=== PATIENT | female | born 1970 | race Caucasian/White ===

== ENCOUNTER 2018-12-24 12:07 | Emergency (ER) | payer OTHER ==
[~2018-12-24] VITALS: Ht 162.6 cm; Wt 67.1 kg
[2018-12-24] MEDS ORDERED: IBUP600T16 PO (12:56)
[2018-12-24] MEDS ORDERED: TRAM-48 PO (12:56)
--- NOTE | 2018-12-24 12:56 | PHYS DOC ---
Past History Past Medical History: Hypothyroid Past Surgical History: Other Alcohol Use: Occasionally Drug Use: None Adult General Chief Complaint Chief Complaint: LEG INJURY PAIN [facility] HPI Patient is a 48 year old female who presents with complaining of injury to right lower extremity. Patient [place] and had a fall and injured her right lower extremity without head injury, loss of consciousness other injuries. Patient states she developed a cough size edema in the area of injury and they did on developed a large ecchymosis. Patient complaining of increasing pain with walking and radiation of the pain to her ankle. She also complaining of paresthesia in her right leg that started today. Patient denies weakness, fever and chills, nausea and vomiting. Patient states she applied ice and took Tylenol and rated her pain 5 or 6. She does not want to have pain medication in ER. Review of Systems Review of Systems Constitutional: Denies fever or chills [] Eyes: Denies change in visual acuity, redness, or eye pain [] HENT: Denies nasal congestion or sore throat [] Respiratory: Denies cough or shortness of breath [] Cardiovascular: No additional information not addressed in HPI [] GI: Denies abdominal pain, nausea, vomiting, bloody stools or diarrhea [] : Denies dysuria or hematuria [] Musculoskeletal: Denies back pain, reports extremity pain [] Integument: Denies rash or skin lesions [] Neurologic: Denies headache, focal weakness or sensory changes [] Endocrine: Denies polyuria or polydipsia [] All other systems were reviewed and found to be within normal limits, except as documented in this note. Physical Exam Physical Exam Constitutional: Well developed, well nourished, mild acute distress, non-toxic appearance. [] HENT: Normocephalic, atraumatic Eyes: PERRLA, EOMI, conjunctiva normal, no discharge. [] Neck: Normal range of motion, no tenderness, supple, no stridor. [] Cardiovascular:Heart rate regular rhythm, no murmur [] Lungs & Thorax: Bilateral breath sounds clear to auscultation [] Skin: Warm, dry, no erythema, no rash. [] Back: No tenderness, no CVA tenderness. [] Extremities: Right lower extremity with a large ecchymosis in anterior of mid adan with mildd edema without wound, normal range of motion ,no focal neuro deficit, No tenderness, no cyanosis, no clubbing, ROM intact, no edema. [] Neurologic: Alert and oriented X 3, normal motor function, normal sensory function, no focal deficits noted. [] Psychologic: Affect normal, judgement normal, mood normal. [] Current Patient Data Vital Signs Vital Signs Date Time Temp Pulse Resp B/P (MAP) Pulse Ox O2 Delivery O2 Flow Rate FiO2 12/24/18 12:15 84 22 97 Room Air EKG EKG [] Radiology/Procedures Radiology/Procedures [address] [address] IMAGING REPORT Signed PATIENT: CLARKE DERAS ACCOUNT: [id number] : 1970 LOCATION: ER AGE: 48 SEX: F EXAM STATUS: REG ER ORD. PHYSICIAN: CAROLYN COLE MD REASON: injury PROCEDURE: TIBIA FIBULA RIGHT Examination: 2 views of the right tibia and fibula HISTORY: History of hematoma, injury, puncture wound anterior to the tibia. COMPARISON: None available FINDINGS: The alignment of the tibia and fibula grossly appears unremarkable. Mild soft tissue swelling anterior to the tibia likely soft tissue injury. IMPRESSION: 1. No acute osseous findings. Electronically signed by: Matheus Melara MD (12/24/2018 12:52 PM) [facility] DICTATED AND SIGNED BY: MATHEUS MELARA MD DATE: 12/24/18 1249 CC: PRETTY CLAY MD; CAROLYN COLE MD ~ Course & Med Decision Making Course & Med Decision Making Pertinent Imaging studies reviewed. (See chart for details) Evaluation of patient in ER showed 48-year-old female patient with injury to right lower extremity with large ecchymosis. Patient had unremarkable x-ray and found to have pain medication in ER. Plan to apply Abrahan wrap and discharge patient home with diagnosis of lower extremity contusion. Dragon Disclaimer Dragon Disclaimer This electronic medical record was generated, in whole or in part, using a voice recognition dictation system. Departure Departure: Impression: Primary Impression: Contusion of right lower extremity Disposition: HOME, SELF-CARE (at 1254) Condition: STABLE Referrals: NON,STAFF (PCP) Patient Instructions: Contusion Additional Instructions: Drink plenty of liquids Follow-up with your primary care physician in 3-5 days Return to ER if not getting better Apply ice on the affected area and your leg Scripts Tramadol Hcl (ULTRAM) 50 Mg Tablet 50 MG PO PRN Q6HRS PRN for PAIN, #20 TAB Prov: CAROLYN COLE MD 12/24/18 Ibuprofen (IBUPROFEN) 600 Mg Tablet 600 MG PO TID for pain, #20 TAB Prov: CAROLYN COLE MD 12/24/18 CAROLYN COLE MD Dec 24, 2018 12:56
[2018-12-24 13:41] VITALS: BP 138/83
== END 2018-12-24 13:20 | disposition home or self-care (01) ==
LOC: ER 12:07
DX: S80.11XA Contusion of right lower leg, initial encounter (principal); E03.9 Hypothyroidism, unspecified; W18.39XA Other fall on same level, initial encounter; Y93.01 Activity, walking, marching and hiking; Y92.89 Other specified places as the place of occurrence of the external cause; Y99.8 Other external cause status
CPT/HCPCS: 73590; 99283

== ENCOUNTER 2019-01-02 10:00 | Emergency (ER) | payer OTHER ==
[~2019-01-02] VITALS: Ht 162.6 cm; Wt 67.1 kg
[~2019-01-02 10:00] MED LIST: IBUP600T16 PO; TRAM-48 PO
[2019-01-02 10:08] VITALS: BP 128/82
[2019-01-02] MEDS ORDERED: HYDROcodone/APAP 5/325MG 1 TAB TABLET PO ONE (10:30)
--- NOTE | 2019-01-02 10:42 | PHYS DOC ---
Past History Past Medical History: Hypothyroid, Other Past Surgical History: Other Alcohol Use: None Drug Use: None Adult General Chief Complaint Chief Complaint: LOWEREXTREMITY INJURY [facility] HPI Patient is a 48 year old female who presents with complaining of a fall on December 22 and injury to right lower extremity and increasing the pain. Patient states she had an accidental fall and had injury to right lower extremity with large ecchymosis that getting larger and more painful. Patient was seen in this emergency room on December 24 and had unremarkable x-ray of right lower extremity. Patient states her pain is not getting better and was not able to sit by her primary care physician at [facility] and was told to come to emergency room. Review of Systems Review of Systems Constitutional: Denies fever or chills [] Eyes: Denies change in visual acuity, redness, or eye pain [] HENT: Denies nasal congestion or sore throat [] Respiratory: Denies cough or shortness of breath [] Cardiovascular: No additional information not addressed in HPI [] GI: Denies abdominal pain, nausea, vomiting, bloody stools or diarrhea [] : Denies dysuria or hematuria [] Musculoskeletal: Denies back pain, reports joint pain [] Integument: Denies rash or skin lesions [] Neurologic: Denies headache, focal weakness or sensory changes [] Endocrine: Denies polyuria or polydipsia [] All other systems were reviewed and found to be within normal limits, except as documented in this note. Allergies Allergies Allergies Coded Allergies Type Severity Reaction Last Updated Verified No Known Allergies Allergy Unknown 01/02/19 Yes Physical Exam Physical Exam Constitutional: Well developed, well nourished, mild distress, non-toxic appearance. [] HENT: Normocephalic, atraumatic Eyes: PERRLA, EOMI, conjunctiva normal, no discharge. [] Neck: Normal range of motion, no tenderness, supple, no stridor. [] Cardiovascular:Heart rate regular rhythm, no murmur [] Lungs & Thorax: Bilateral breath sounds clear to auscultation [] Skin: Warm, dry, no erythema, no rash. [] Back: No tenderness, no CVA tenderness. [] Extremities: Right right lower extremity with large and old ecchymosis in anterior and lateral side of leg with puncture wound in anterior side of leg without neurovascular deficit. Neurologic: Alert and oriented X 3, normal motor function, normal sensory function, no focal deficits noted. [] Psychologic: Affect normal, judgement normal, mood normal. [] Current Patient Data Vital Signs Vital Signs Date Time Temp Pulse Resp B/P (MAP) Pulse Ox O2 Delivery O2 Flow Rate FiO2 01/02/19 10:08 98.2 90 20 98 Room Air EKG EKG [] Radiology/Procedures Radiology/Procedures [address] [address] IMAGING REPORT Signed PATIENT: RADHA JIMENEZ ACCOUNT: [id number] : 12/20/1980 LOCATION: ER AGE: 38 SEX: F EXAM STATUS: REG ER ORD. PHYSICIAN: CAROLYN COLE MD REASON: fall PROCEDURE: KNEE RIGHT 4V KNEE RIGHT 4V History: FALL ON ICE TODAY, RIGHT KNEE PAIN Comparison: None. Findings: 4 views of the right knee are submitted. No acute fracture or dislocation is identified by radiographs. Impression: 1. No acute osseous abnormality is identified by radiographs. Electronically signed by: Jeffrey Gasca MD (01/02/2019 10:51 AM) [id number] DICTATED AND SIGNED BY: JEFFREY GASCA MD DATE: 01/02/19 1049 CC: CAROLYN COLE MD; PCP,NO ~ [address] [address] IMAGING REPORT Signed PATIENT: RADHA JIMENEZ ACCOUNT: [id number] : 12/20/1980 LOCATION: ER AGE: 38 SEX: F EXAM STATUS: REG ER ORD. PHYSICIAN: CAROLYN COLE MD REASON: fall PROCEDURE: SHOULDER 2+V RIGHT SHOULDER 2+V RIGHT History: FALL ON ICE TODAY, RIGHT SHOULDER PAIN Comparison: None. Findings: 3 views of the right shoulder are submitted. There is old healed fracture of the right clavicle. No acute fracture or dislocation is identified by radiographs. Impression: 1. There is old healed right clavicle fracture, no acute fracture identified by radiographs. Electronically signed by: Jeffrey Gasca MD (01/02/2019 10:52 AM) [id number] DICTATED AND SIGNED BY: JEFFREY GASCA MD DATE: 01/02/19 1051 CC: CAROLYN COLE MD; PCP,NO ~ Course & Med Decision Making Course & Med Decision Making Pertinent Imaging studies reviewed. (See chart for details) Evaluation of patient in ER showed 48-year-old female patient with a fall on December 22 and injury to right lower extremity. Patient had venous Doppler study today and negative x-ray interpreted previous visit. Patient instructed to follow-up with [facility] physician for possible MRI and evaluation of pain. Dragon Disclaimer Dragon Disclaimer This electronic medical record was generated, in whole or in part, using a voice recognition dictation system. Departure Departure: Impression: Primary Impression: Contusion of right lower extremity Disposition: 01 HOME, SELF-CARE (@1225) Condition: STABLE Referrals: PRETTY CLAY MD (PCP) Patient Instructions: Contusion Additional Instructions: Follow-up with [facility] orthopedic physician Dr. Rodriguez called [phone] to make an appointment in 2 or 3 days for possible MRI of lower extremity and more evaluation Drink plenty of liquids Follow-up with your primary care physician in 3-5 days Return to ER if not getting better CAROLYN COLE MD Jan 02, 2019 10:42
--- NOTE | 2019-01-02 11:38 | RAD ---
Right lower extremity venous Doppler ultrasound History: INJURY FELL OVER A BRANCH 216-19 RT ANTERIOR CALF JUST MEDIAL AND LATERAL OF ML HAS BRUISING ON IT AND IS PAINFUL Comparison: None. Procedure: Color flow Doppler, Doppler spectral analysis, and 2D images are obtained with and without compression in the area of the common femoral vein, superficial femoral vein - femoral vein junction, main femoral vein (superficial femoral vein) and popliteal vein. Veins of the proximal calf are also imaged. Findings: There is normal color flow, augmentation, and compressibility of all visualized vein segments. No evidence of deep venous thrombus is present. No subcutaneous or intramuscular fluid collection is identified in the calf. IMPRESSION: No evidence of right lower extremity deep venous thrombosis. Electronically signed by: Sanjeev Ferris MD (01/02/2019 11:35 AM) [id number]
== END 2019-01-02 12:31 | disposition home or self-care (01) ==
LOC: ER 10:00
DX: S80.01XD Contusion of right knee, subsequent encounter (principal); E03.9 Hypothyroidism, unspecified; W18.39XD Other fall on same level, subsequent encounter
CPT/HCPCS: 93971; 99284

== ENCOUNTER 2020-06-29 19:00 | Emergency (ER) | payer OTHER ==
[~2020-06-29] VITALS: Ht 162.6 cm; Wt 63.6 kg
[2020-06-29 19:10] VITALS: BP 144/72
--- NOTE | 2020-06-29 19:27 | PHYS DOC ---
Past History Past Medical History: Hypothyroid, Other Past Surgical History: Other Alcohol Use: None Drug Use: None Adult General Chief Complaint Chief Complaint: FOOT INJURY PAIN HPI HPI Patient is a 49-year-old female who presents with left foot pain. Reports stubbing left fifth and fourth toes on corner of bathtub. Unable to fully bear weight, focal pain to base of left fifth metatarsal, history of orthopedic surgery and plates in foot. Patient heard a crunch concerning her for potential dislodgment of prior orthopedic surgery prompting her to seek care at our ER Review of Systems Review of Systems Fourteen body systems of review of systems have been reviewed. See HPI for pertinent positives and negative responses, other alves all other systems are negative, non-pertinent or non-contributory Current Medications Current Medications Current Medications Medications (Trade) Dose Ordered Sig/Gloria Start Time Stop Time Status Last Admin Dose Admin Ibuprofen (Motrin) 600 mg 1X ONCE 06/29/20 19:30 06/29/20 19:31 Allergies Allergies Allergies Coded Allergies Type Severity Reaction Last Updated Verified No Known Allergies Allergy Unknown 06/29/20 Yes Physical Exam Physical Exam Constitutional: Well developed, well nourished, no acute distress, non-toxic appearance. HENT: Normocephalic, atraumatic, bilateral external ears normal, oropharynx moist, no oral exudates, nose normal. Eyes: PERRLA, EOMI, conjunctiva normal, no discharge. Neck: Normal range of motion, no tenderness, supple, no stridor. Cardiovascular: Heart rate regular, sinus rhythm, no murmurs rubs or gallops Lungs & Thorax: Bilateral breath sounds clear to auscultation Abdomen: Bowel sounds normal, soft, no tenderness, no masses, no pulsatile masses. Nonsurgical abdomen, no peritoneal signs Skin: Warm, dry, no erythema, no rash. Back: No tenderness, no CVA tenderness. Extremities: No cyanosis, no clubbing, ROM intact, no edema. Bilateral feet and ankles unless otherwise noted; Proximal Tibia nontender Medial malleolus nontender Lateral malleolus nontender Calcaneus nontender Tarsometatarsal region nontender Base of 5th on left tender to palpation Rest of foot and ankle without marked tenderness Varus and Valgus Stress of ankle joint without significant laxity Full Range of Motion with full strength Skin on plantar section of midfoot without ecchymosis Capillary refill <2seconds and distal Sensation to light touch in tact per routine Compartments surrounding are soft Neurologic: Alert and oriented X 3, grossly normal motor & sensory function, no focal deficits noted. Psychologic: Affect normal, judgement normal, mood normal. Current Patient Data Vital Signs Vital Signs Date Time Temp Pulse Resp B/P (MAP) Pulse Ox O2 Delivery O2 Flow Rate FiO2 06/29/20 19:10 98.1 98 18 144/72 (96) 97 Room Air EKG EKG [] Radiology/Procedures Radiology/Procedures PROCEDURE: FOOT LEFT 3V FOOT LEFT 3V History: Reason: Left foot injury today, pain. Hx: Surgery 2010 with plate / Spl. Instructions: / History: Technique: 3 views left foot. Comparison: None. Findings: Normal alignment. No fracture. Internal fixation fifth metatarsal healed fracture. Impression: 1. No acute osseous abnormality. Electronically signed by: David Murphy DO (06/29/2020 9:32 PM) [facility] Course & Med Decision Making Course & Med Decision Making Nonambulatory patient seen on arrival ABCs unremarkable Comprehensive history and physical exam obtained, Benton foot rules positive, radiograph obtained, discussed findings of no acute bony abnormalities Patient arrived on crutches, she was educated extensively on continued supportive care and need for outpatient PCP follow-up with consideration for orthopedic follow-up Discussed most likely diagnosis of left fifth metatarsal contusion Discussed this may be an acute presentation of more serious pathology, stressed importance of close outpatient follow-up Strict return precautions discussed at length with good understanding, all questions and concerns addressed prior to discharge home in stable condition Dragon Disclaimer Dragon Disclaimer This electronic medical record was generated, in whole or in part, using a voice recognition dictation system. Departure Departure: Impression: Primary Impression: Contusion of fifth toe of left foot Disposition: HOME/RESIDENCE PRIOR TO ADM Condition: STABLE Referrals: PRETTY CLAY MD (PCP) Patient Instructions: RICE - Routine Care for Injuries Additional Instructions: As discussed prior to ER departure, please follow-up with your primary care physician in upcoming 1 to 10 days for follow-up As discussed, there were no emergent/surgical findings during your ER visit Continued supportive care with outpatient follow-up advised with consideration for orthopedic evaluation as determined by your PCP You have any questions or concerns regarding your care or concerning signs or symptoms of worsening foot pain and/or infection, please contact your primary care physician or re-present to our ER for thorough medical evaluation It was a pleasure to take care of you and I hope you a speedy recovery! Justification of Admission: Justification of Admission: Justification of Admission Dx: N/A HUMBERTO CARRASCO DO Jun 29, 2020 19:27
[2020-06-29] MEDS ORDERED: IBUPROFEN 600 MG TABLET. PO ONE (19:30)
--- NOTE | 2020-06-29 21:35 | RAD ---
FOOT LEFT 3V History: Reason: Left foot injury today, pain. Hx: Surgery 2010 with plate / Spl. Instructions: / History: Technique: 3 views left foot. Comparison: None. Findings: Normal alignment. No fracture. Internal fixation fifth metatarsal healed fracture. Impression: 1. No acute osseous abnormality. Electronically signed by: David Murphy DO (06/29/2020 9:32 PM) [facility]
[2020-06-29] MEDS ORDERED: START PACK - traMADol 1 STARTPACK TABLET PO ONE (22:00)
== END 2020-06-29 21:58 | disposition home or self-care (01) ==
LOC: ER 19:00
DX: S90.32XA Contusion of left foot, initial encounter (principal); E03.9 Hypothyroidism, unspecified; W22.8XXA Striking against or struck by other objects, initial encounter; Y93.89 Activity, other specified; Y92.89 Other specified places as the place of occurrence of the external cause; Y99.8 Other external cause status
CPT/HCPCS: 73630; 99284

== ENCOUNTER → 2021-02-01 | Outpatient (CLI) | payer OTHER ==
--- NOTE | 2021-02-02 04:56 | RAD ---
XR RT TOE 2+ VIEWS Clinical Indication: Reason: F/U RIGHT 5TH DIGIT FRACTURE / Spl. Instructions: / History: Comparison: None. Findings: AP and lateral views. There is cortical irregularity of the distal neck of the fifth proximal phalanx which could be due to subacute nondisplaced fracture. No definite callus formation is seen. No soft tissue swelling of the fifth toe is seen. The joint spaces are maintained. The mineralization is normal. There is inferior calcaneal bone spur. IMPRESSION: Cortical irregularity of the distal neck of the fifth proximal phalanx may be subacute nondisplaced f racture. Electronically signed by: Sanjeev Ferris MD (02/02/2021 4:54 AM) [facility]
== END ==
LOC: RAD 13:47
PROVIDERS: ATTEND Physician Assistant
DX: S92.514 Nondisplaced fracture of proximal phalanx of right lesser toe(s) (principal); X58.XXXA Exposure to other specified factors, initial encounter; Y93.89 Activity, other specified; Y92.89 Other specified places as the place of occurrence of the external cause; Y99.8 Other external cause status
CPT/HCPCS: 73660

== ENCOUNTER 2021-06-19 22:23 | Emergency (ER) | payer OTHER ==
--- NOTE | 2021-06-20 02:15 | PHYS DOC ---
Past History Past Medical History: Hypothyroid, Kidney Stones, Other Additional Past Medical Histor: restless legs Past Surgical History: Other Additional Past Surgical Histo: lt foot surgery-repair broken bones in foot Alcohol Use: Occasionally Drug Use: None General Adult EDM: Chief Complaint: URINARY FREQUENCY HPI: HPI: ".. I ve got a really bad urinary tract infection... " Or something going on Patient is a 50 year old female who presents with right flank pain. Pain radiates to groin. Pain is described as severe. Has been intermittent. Is associated with severe nausea during peak painful episodes. No previous history of kidney stones. No history of trauma. No history of travel. No history of specific ill contacts. Normally healthy. Follows with [facility]. Review of Systems: Review of Systems: Constitutional: Denies fever or chills Eyes: Denies change in visual acuity HENT: Denies nasal congestion or sore throat Respiratory: Denies cough or shortness of breath Cardiovascular: Denies chest pain or edema GI: Complains of right flank abdominal pain, nausea, vomiting,. Denies bloody stools or diarrhea : Denies dysuria Musculoskeletal: Pain to right flank back pain. Denies joint pain Integument: Denies rash Neurologic: Denies headache, focal weakness or sensory changes Endocrine: Denies polyuria or polydipsia Lymphatic: Denies swollen glands Psychiatric: Denies depression or anxiety Family History: Family History: Noncontributory Current Medications: Current Meds: See nursing for home meds Allergies: Allergies: Allergies Coded Allergies Type Severity Reaction Last Updated Verified No Known Allergies Allergy Unknown 06/29/20 Yes Physical Exam: PE: Constitutional: in acute distress, non-toxic appearance. [] HENT: Normocephalic, atraumatic, bilateral external ears normal, oropharynx moist, no oral exudates, nose normal. [] Eyes: PERRLA, EOMI, conjunctiva normal, no discharge. [] Neck: Normal range of motion, no tenderness, supple, no stridor. [] Cardiovascular:Heart rate regular rhythm, no murmur [] Lungs & Thorax: Bilateral breath sounds clear to auscultation [] Abdomen: Bowel sounds decreased, soft, right flank tenderness, no masses, no pulsatile masses. [] Skin: Warm, dry, no erythema, no rash. [] Back: No tenderness, right flank CVA tenderness. [] Extremities: No tenderness, no cyanosis, no clubbing, ROM intact, no edema. [] Neurologic: Alert and oriented X 3, normal motor function, normal sensory function, no focal deficits noted. [] Psychologic: Affect anxious, judgement normal, mood normal. [] EKG: EKG: [] Radiology/Procedures: Radiology/Procedures: [[address] [id number] IMAGING REPORT Signed PATIENT: CLARKE DERAS DACCOUNT: [id number] : 1970 LOCATION: ER AGE: 50 SEX: F EXAM STATUS: REG ER ORD. PHYSICIAN: PO JAFFE MD REASON: pain, Rt. flank radiate to groin PROCEDURE: CT ABDOMEN PELVIS WO CONTRAST CT abdomen and pelvis without contrast PQRS statement: CT scans at this facility use dose reduction including either automated exposure control, iterative reconstructions, and /or weight based radiation dosing via mA and kV modification when appropriate to reduce radiation dose to as low as reasonably achievable. HISTORY: Right flank pain. Right groin pain. CT abdomen findings: Left lower lobe 3 mm solid nodule image 7. Inferior right hepatic lobe image 60 demonstrates a 2.5 cm indeterminate hypodense lesion internal density of 45 units. Spleen, accessory spleen, gallbladder, pancreas and adrenal glands are unremarkable. Nephrolithiasis. There is mild right renal hydronephrosis and dilation of the ureter leading up to a 5 mm obstructing calculus at the ureterovesical junction. Calcified likely aorta and iliac arteries. Appendix is negative. There is moderate volume of stool within the large bowel. No abdominal fluid. Pelvis findings: Retroverted uterus. Lobulation of the anterior wall of the lower uterus could indicate the presence of a leiomyoma or other mass lesion. There is a right adnexal 4.2 cm tubular cystic focus likely hydrosalpinx. 5 mm right ureterovesical junction calculus at the distal ureter and bladder. Left ovary, rectum and bones are unremarkable. IMPRESSION: 1. Mild right renal hydronephrosis associated with a 5 mm obstructive ureterovesical junction calculus. 2. Nephrolithiasis. 3. Appendix is negative. 4. Lobulation of the anterior lower uterine wall may indicate a mass, most likely a leiomyoma. There is a tubular 4 x 2 cm cystic focus of the right adnexa, likely hydrosalpinx, an adnexal cystic lesion is a secondary consideration. Further assessment with outpatient pelvic sonography is advised. 5. 3 mm solid pulmonary nodule of the left lower lobe. Per Fleischner guidelines if the patient has risk factors for malignancy optional CT follow-up in 12 months would be advised, otherwise no follow-up is necessary. 6. Indeterminate 2.5 cm round hypodense liver lesion of the right hepatic lobe with internal density of 45 units. This is not typical of a cyst. This could be a hemangioma or a solid neoplasm. This could be further assessed with outpatient MR imaging. Electronically signed by: Swetha Baker MD (06/20/2021 3:58 AM) [facility] [place] DICTATED AND SIGNED BY: SWETHA BAKER MD DATE: 06/20/21 [id number] CC: PO JAFFE MD; PRETTY CLAY MD ~[facility] 0 ][place] [address] IMAGING REPORT Signed PATIENT: CLARKE DERAS DACCOUNT: [id number] : 1970 LOCATION: ER AGE: 50 SEX: F EXAM STATUS: REG ER ORD. PHYSICIAN: PO JAFFE MD REASON: pain PROCEDURE: ACUTE ABDOMEN SERIES PA chest and AP upright supine abdomen x-rays HISTORY: Pain. FINDINGS: Heart and mediastinum unremarkable. No pulmonary opacities or pleural effusions. No pneumoperitoneum evident. Mild gas and stool within the large bowel. No dilated small bowel loops. At the right pelvis there is a 4 mm calcification corresponding to a ureterovesical junction calculus on CT imaging performed the same day. IMPRESSION: 4 mm calcification at the pelvis consistent with the patient's known ureterovesical junction calculus. No acute process in the chest. No bowel obstruction. Electronically signed by: Swetha Baker MD (06/20/2021 4:27 AM) [facility] DI[facility]ATED AND SIGNED BY: SWETHA BAKER MD DATE: 06/20/21 [id number] CC: PO JAFFE MD; PRETTY CLAY MD ~[facility]0 0 Heart Score: C/O Chest Pain: N/A Risk Factors: Risk Factors: DM, Current or recent (<one month) smoker, HTN, HLP, family history of CAD, obesity. Risk Scores: Score 0 - 3: 2.5% MACE over next 6 weeks - Discharge Home Score 4 - 6: 20.3% MACE over next 6 weeks - Admit for Clinical Observation Score 7 - 10: 72.7% MACE over next 6 weeks - Early Invasive Strategies Course & Med Decision Making: Course & Med Decision Making Pertinent Labs and Imaging studies reviewed. (See chart for details) Patient push fluids. Take Tylenol and ibuprofen for pain. Marked pain may take Vicoprofen. Zofran 8 mg at 4 times a day as needed for nausea vomiting. Follow-up with urology. Follow-up primary. Save stone if passed. Impression: 1. Kidney Stone Rt- 5mm stone 2. Hematuria 3. Mild Leukocytosis 11.3 [] Dragon Disclaimer: Dragon Disclaimer: This electronic medical record was generated, in whole or in part, using a voice recognition dictation system. Departure Departure: Referrals: PRETTY CLAY MD (PCP) Scripts Hydrocodone/Ibuprofen (HYDROCODONE-IBUPROFEN 7.5-200 ) 1 Each Tablet 1 TAB PO PRN Q6HRS PRN for PAIN, #30 TAB 0 Refills Prov: PO JAFFE MD 06/20/21 Ondansetron Hcl (ZOFRAN) 4 Mg Tablet 8 MG PO QIDPRN PRN for NAUSEA/VOMITING, #30 TAB Prov: PO JAFFE MD 06/20/21 Tamsulosin Hcl (FLOMAX) 0.4 Mg Cap.er.24h 0.4 MG PO DAILY for kidney stone, #30 CAP.SR Prov: PO JAFFE MD 06/20/21 Fluconazole (DIFLUCAN) 100 Mg Tablet 100 MG PO DAILY for uti- post antibiotics for 3 Days, #3 TAB Prov: PO JAFFE MD 06/20/21 Sulfamethoxazole/Trimethoprim (BACTRIM DS TABLET) 1 Each Tablet 1 TAB PO BID for uti for 7 Days, #14 TAB 0 Refills Prov: PO JAFFE MD 06/20/21 Dragon Disclaimer This chart was dictated in whole or in part using Voice Recognition software in a busy, high-work load, and often noisy Emergency Department environment. It may contain unintended and wholly unrecognized errors or omissions. PO JAFFE MD Jun 20, 2021 02:15
[2021-06-20] MEDS ORDERED: FLUC100T7 PO (02:20)
[2021-06-20] MEDS ORDERED: SULF1TAB24 PO (02:20)
[2021-06-20 02:24] LABS: CLARITY,URINE CLEAR; COLOR,URINE YELLOW
[2021-06-20 02:25] LABS: BACTERIA,URINE 0 /HPF (0-FEW); BILIRUBIN,URINE NEG (NEG); GLUCOSE,URINE NEG (NEG); NITRITE,URINE NEG (NEG); SQUAMOUS EPITHELIAL CELL,UR FEW /LPF; UROBILINOGEN,URINE 0.2 mg/dL (0.2 mg/dL); WBC,URINE OCC /HPF (0-4)
[2021-06-20] MEDS ORDERED: SMZ/TMP 800/160MG TABLET. PO ONE (03:00)
[2021-06-20] MEDS ORDERED: FAMOTIDINE 20 MG/2 ML VIAL IVP ONE (03:00)
[2021-06-20] MEDS ORDERED: KETOROLAC 30 MG/ML VIAL. IVP ONE (03:00)
[2021-06-20] MEDS ORDERED: IV RINGERS SOLUTION,LACTATED 1,000 ML IV SCH (03:00)
[2021-06-20] MEDS ORDERED: ONDANSETRON PF 4 MG/2 ML VIAL. IVP ONE (03:00)
[2021-06-20] MEDS ORDERED: PHENAZOPYRIDINE 200 MG TABLET. PO ONE (03:00)
[2021-06-20] MEDS ORDERED: MORPHINE SULFATE 10 MG/ML SYRINGE. ONE (03:19)
[2021-06-20] MEDS ORDERED: TAMSULOSIN 0.4 MG CAP.ER.24H. PO ONE (03:30)
[2021-06-20 03:38] LABS: BASO % 0 % (0-3); EOS % 0 % (0-3); HEMATOCRIT 41.9 % (36.0-47.0); HEMOGLOBIN 13.9 g/dL (12.0-15.5); LYMPH % 9 % (24-48); MEAN CORPUSCULAR HEMOGLOBIN 27 pg (25-35); MEAN CORPUSCULAR HGB CONC 33 g/dL (31-37); MEAN CORPUSCULAR VOLUME 83 fL (79-100); MONO # 0.4 x10^3/uL (0.0-1.1); MONO % 3 % (0-9); NEUT # 9.9 x10^3uL (1.8-7.7); NEUT % 88 % (31-73); PLATELET COUNT 346 x10^3/uL (140-400); RED BLOOD COUNT 5.09 x10^6/uL (3.50-5.40); RED CELL DISTRIBUTION WIDTH 14.3 % (11.5-14.5); WHITE BLOOD COUNT 11.3 x10^3/uL (4.0-11.0)
[2021-06-20 03:47] LABS: CALCIUM 8.9 mg/dL (8.5-10.1); CREATININE 0.9 mg/dL (0.6-1.0); POTASSIUM 3.9 mmol/L (3.5-5.1)
[2021-06-20] MEDS ORDERED: MORPHINE SULFATE 10 MG/ML SYRINGE. SQ ONE (04:00)
--- NOTE | 2021-06-20 04:01 | RAD ---
CT abdomen and pelvis without contrast PQRS statement: CT scans at this facility use dose reduction including either automated exposure cont rol, iterative reconstructions, and /or weight based radiation dosing via mA and kV modification when appropriate to reduce radiation dose to as low as reasonably achievable. HISTORY: Right flank pain. Right groin pain. CT abdomen findings: Left lower lobe 3 mm solid nodule image 7. Inferior right hepatic lobe image 60 demonstrates a 2.5 cm indeterminate hypodense lesion internal density of 45 units. Spleen, accessory spleen, gallbladder, pancreas and adrenal glands are unremarkable. Nephrolithiasis. There is mild rig ht renal hydronephrosis and dilation of the ureter leading up to a 5 mm obstructing calculus at the u reterovesical junction. Calcified likely aorta and iliac arteries. Appendix is negative. There is mod erate volume of stool within the large bowel. No abdominal fluid. Pelvis findings: Retroverted uterus. Lobulation of the anterior wall of the lower uterus could indica te the presence of a leiomyoma or other mass lesion. There is a right adnexal 4.2 cm tubular cystic f ocus likely hydrosalpinx. 5 mm right ureterovesical junction calculus at the distal ureter and bladde r. Left ovary, rectum and bones are unremarkable. IMPRESSION: 1. Mild right renal hydronephrosis associated with a 5 mm obstructive ureterovesical junction calculu s. 2. Nephrolithiasis. 3. Appendix is negative. 4. Lobulation of the anterior lower uterine wall may indicate a mass, most likely a leiomyoma. There is a tubular 4 x 2 cm cystic focus of the right adnexa, likely hydrosalpinx, an adnexal cystic lesion is a secondary consideration. Further assessment with outpatient pelvic sonography is advised. 5. 3 mm solid pulmonary nodule of the left lower lobe. Per Fleischner guidelines if the patient has r isk factors for malignancy optional CT follow-up in 12 months would be advised, otherwise no follow-u p is necessary. 6. Indeterminate 2.5 cm round hypodense liver lesion of the right hepatic lobe with internal density of 45 units. This is not typical of a cyst. This could be a hemangioma or a solid neoplasm. This coul d be further assessed with outpatient MR imaging. Electronically signed by: Demarco Baker MD (06/20/2021 3:58 AM) [facility]
--- NOTE | 2021-06-20 04:29 | RAD ---
PA chest and AP upright supine abdomen x-rays HISTORY: Pain. FINDINGS: Heart and mediastinum unremarkable. No pulmonary opacities or pleural effusions. No pneumop eritoneum evident. Mild gas and stool within the large bowel. No dilated small bowel loops. At the [facility] pelvis there is a 4 mm calcification corresponding to a ureterovesical junction calculus on CT im aging performed the same day. IMPRESSION: 4 mm calcification at the pelvis consistent with the patient's known ureterovesical junct ion calculus. No acute process in the chest. No bowel obstruction. Electronically signed by: Demarco Baker MD (06/20/2021 4:27 AM) [facility]
[2021-06-20] MEDS ORDERED: TAMS0.4C97 PO (05:22)
[2021-06-20] MEDS ORDERED: ONDA4TAB7 PO (05:26)
[2021-06-20] MEDS ORDERED: HYDR-1179 PO (05:27)
== END 2021-06-20 05:59 | disposition home or self-care (01) ==
LOC: ER 22:23
DX: N13.2 Hydronephrosis with renal and ureteral calculous obstruction (principal); D72.829 Elevated white blood cell count, unspecified; R31.9 Hematuria, unspecified; E03.9 Hypothyroidism, unspecified; Z87.442 Personal history of urinary calculi
CPT/HCPCS: 36415; 74022; 74176; 80048; 81001; 82150; 83690; 85025; 96361; 96372; 96374; 96375; 99285; J1885; J2270; J2405; J3490; J7120

== ENCOUNTER 2022-03-11 08:56 | Emergency (ER) | payer OTHER ==
[~2022-03-11] VITALS: Ht 162.6 cm; Wt 70.0 kg
[~2022-03-11 08:56] MED LIST changes: +FLUC100T7 PO; +HYDR-1179 PO; +ONDA4TAB7 PO; +SULF1TAB24 PO; +TAMS0.4C97 PO
[2022-03-11] MEDS ORDERED: IV NORMAL SALINE 1,000ML 1,000 ML IV ONE (09:15)
[2022-03-11] MEDS ORDERED: IOHEXOL 300 MG/ML 75 ML VIAL. IV ONE (09:30)
[2022-03-11 09:46] LABS: BASO % 1 % (0-3); EOS # 0.1 x10^3/uL (0.0-0.7); EOS % 3 % (0-3); HEMOGLOBIN 13.3 g/dL (12.0-15.5); LYMPH # 1.9 x10^3/uL (1.0-4.8); LYMPH % 43 % (24-48); MEAN CORPUSCULAR HEMOGLOBIN 27 pg (25-35); MEAN CORPUSCULAR HGB CONC 33 g/dL (31-37); MEAN CORPUSCULAR VOLUME 82 fL (79-100); MONO # 0.5 x10^3/uL (0.0-1.1); MONO % 11 % (0-9); NEUT # 1.9 x10^3uL (1.8-7.7); NEUT % 42 % (31-73); PLATELET COUNT 290 x10^3/uL (140-400); RED BLOOD COUNT 4.88 x10^6/uL (3.50-5.40); RED CELL DISTRIBUTION WIDTH 14.2 % (11.5-14.5); WHITE BLOOD COUNT 4.5 x10^3/uL (4.0-11.0)
[2022-03-11 09:50] LABS: CALCIUM 8.9 mg/dL (8.5-10.1); CREATININE 0.7 mg/dL (0.6-1.0); GFR 87.9; POTASSIUM 4.8 mmol/L (3.5-5.1)
[2022-03-11 09:56] LABS: ALBUMIN 3.6 g/dL (3.4-5.0); ALBUMIN/GLOBULIN RATIO 0.8 (1.0-1.7); TOTAL BILIRUBIN 0.4 mg/dL (0.2-1.0); TOTAL PROTEIN 8.2 g/dL (6.4-8.2)
[2022-03-11 09:57] LABS: BACTERIA,URINE FEW /HPF (0-FEW); CLARITY,URINE CLEAR; COLOR,URINE YELLOW; GLUCOSE,URINE NEG (NEG); NITRITE,URINE NEG (NEG); RBC,URINE OCC /HPF (0-2); SQUAMOUS EPITHELIAL CELL,UR MOD /LPF; UROBILINOGEN,URINE 0.2 mg/dL (0.2 mg/dL); WBC,URINE OCC /HPF (0-4)
--- NOTE | 2022-03-11 10:06 | RAD ---
EXAM: CT Abdomen and Pelvis with IV contrast CLINICAL HISTORY: Right lower quadrant pain COMPARISON: 06/20/2021 TECHNIQUE: Helical CT of the abdomen and pelvis was performed following the administration of intrave nous contrast. Axial, coronal and sagittal reformatted images were generated. PQRS compliance statement - One or more of the following individualized dose reduction techniques wer e utilized for this study: 1. Automated exposure control 2. Adjustment of the mA and/or kV according to patient size 3. Use of iterative reconstruction technique FINDINGS: Lower Chest: Lung bases are clear. Abdomen and Pelvis: Hepatomegaly. A 2.5 x 2.2 cm hypodense inferior right hepatic lobe lesion is seen. Gallbladder is nor mal. No biliary ductal dilatation. Pancreas, spleen and adrenal glands are unremarkable. Bilateral sm all nonobstructing renal calculi are seen. Right interpolar renal cystic lesion is seen. Subcentimete r hypodense right lower pole and left upper pole renal lesion lesions are too small to characterize. No hydronephrosis. No hydroureter. Appendix is normal. Moderate colonic stool content is seen. No small or large bowel dilatation. No quan wel obstruction. Low-density uterine mass likely uterine fibroid. The previously seen tubular structure in the right a dnexa has since resolved. No abdominal or pelvic lymphadenopathy. No abdominal or pelvic ascites. Bones: Degenerative changes of the spine, SI joints and symphysis pubis. IMPRESSION: 1. Appendix is normal. 2. Nonobstructing renal calculi. No definite ureteral or bladder calculi are seen. 3. Indeterminate 2.5 cm hypodense inferior right hepatic lesion is stable to 06/20/2021 although shou ld be further assessed with outpatient MR imaging if not previously performed. 4. Hepatomegaly. 5. Uterine mass may represent a uterine fibroid. Electronically signed by: Brandon Nevarez MD (03/11/2022 10:04 AM) [id number]
--- NOTE | 2022-03-11 10:07 | PHYS DOC ---
Past History Past Medical History: Hypothyroid, Kidney Stones, Other Additional Past Medical Histor: restless legs Past Surgical History: Other Additional Past Surgical Histo: lt foot surgery-repair broken bones in foot Alcohol Use: Occasionally Drug Use: None Adult General Chief Complaint Chief Complaint: ABDOMINAL PAIN HPI HPI Patient is a 51-year-old female presenting to the emergency department for evaluation of abdominal pain diarrhea nausea that has been going on for the past several days. Patient says the abdominal pain is in the right lower quadrant and may radiate slightly to the back and that the pain comes and goes and that is sharp in nature. She says she has had associated nausea and loose stools. She denies being on antibiotics recently or any chemotherapy or foreign travel. Patient denies dysuria hematuria fevers chills vaginal bleeding or vaginal discharge. She denies prior abdominal surgeries but says that she has had a kidney stone in the past and that this may feel similar. She is in no acute distress with normal vital signs. Review of Systems Review of Systems Constitutional: Denies fever or chills [] Eyes: Denies change in visual acuity, redness, or eye pain [] HENT: Denies nasal congestion or sore throat [] Respiratory: Denies cough or shortness of breath [] Cardiovascular: No additional information not addressed in HPI [] GI: Denies abdominal pain, nausea, vomiting, bloody stools or diarrhea [] : Denies dysuria or hematuria [] Musculoskeletal: Denies back pain or joint pain [] Integument: Denies rash or skin lesions [] Neurologic: Denies headache, focal weakness or sensory changes [] Endocrine: Denies polyuria or polydipsia [] All other systems were reviewed and found to be within normal limits, except as documented in this note. Current Medications Current Medications Current Medications Medications (Trade) Dose Ordered Sig/Gloria Start Time Stop Time Status Last Admin Dose Admin Iohexol (Omnipaque 300 Mg/ml) 75 ml 1X ONCE 03/11/22 09:30 03/11/22 09:31 DC 03/11/22 09:32 75 ML Sodium Chloride 1,000 ml @ 1,000 mls/hr 1X ONCE 03/11/22 09:15 03/11/22 10:14 03/11/22 09:31 1,000 MLS/HR Allergies Allergies Allergies Coded Allergies Type Severity Reaction Last Updated Verified No Known Allergies Allergy Unknown 03/11/22 Yes Physical Exam Physical Exam Constitutional: Well developed, well nourished, no acute distress, non-toxic appearance. [] HENT: Normocephalic, atraumatic, bilateral external ears normal, oropharynx moist, no oral exudates, nose normal. [] Eyes: PERRLA, EOMI, conjunctiva normal, no discharge. [] Neck: Normal range of motion, no tenderness, supple, no stridor. [] Cardiovascular:Heart rate regular rhythm, no murmur [] Lungs & Thorax: Bilateral breath sounds clear to auscultation [] Abdomen: Bowel sounds normal, soft, no tenderness, no masses, no pulsatile masses. [] Skin: Warm, dry, no erythema, no rash. [] Back: No tenderness, no CVA tenderness. [] Extremities: No tenderness, no cyanosis, no clubbing, ROM intact, no edema. [] Neurologic: Alert and oriented X 3, normal motor function, normal sensory function, no focal deficits noted. [] Psychologic: Affect normal, judgement normal, mood normal. [] Current Patient Data Vital Signs Vital Signs Date Time Temp Pulse Resp B/P (MAP) Pulse Ox O2 Delivery O2 Flow Rate FiO2 03/11/22 09:07 98.3 72 18 132/75 (94) 97 Room Air Lab Results Laboratory Tests Test 03/11/22 09:15 03/11/22 09:20 Urine Collection Type Unknown Urine Color Yellow Urine Clarity Clear Urine pH 5.5 Urine Specific [place] 1.010 Urine Protein Neg (NEG-TRACE) Urine Glucose (UA) Neg mg/dL (NEG) Urine Ketones (Stick) Neg mg/dL (NEG) Urine Blood Neg (NEG) Urine Nitrite Neg (NEG) Urine Bilirubin Neg (NEG) Urine Urobilinogen Dipstick 0.2 mg/dL (0.2 mg/dL) Urine Leukocyte Esterase Neg (NEG) Urine RBC Occ /HPF (0-2) Urine WBC Occ /HPF (0-4) Urine Squamous Epithelial Cells Mod /LPF Urine Bacteria Few /HPF (0-FEW) White Blood Count 4.5 x10^3/uL (4.0-11.0) Red Blood Count 4.88 x10^6/uL (3.50-5.40) Hemoglobin 13.3 g/dL (12.0-15.5) Hematocrit 40.0 % (36.0-47.0) Mean Corpuscular Volume 82 fL (79-100) Mean Corpuscular Hemoglobin 27 pg (25-35) Mean Corpuscular Hemoglobin Concent 33 g/dL (31-37) Red Cell Distribution Width 14.2 % (11.5-14.5) Platelet Count 290 x10^3/uL (140-400) Neutrophils (%) (Auto) 42 % (31-73) Lymphocytes (%) (Auto) 43 % (24-48) Monocytes (%) (Auto) 11 % (0-9) H Eosinophils (%) (Auto) 3 % (0-3) Basophils (%) (Auto) 1 % (0-3) Neutrophils # (Auto) 1.9 x10^3uL (1.8-7.7) Lymphocytes # (Auto) 1.9 x10^3/uL (1.0-4.8) Monocytes # (Auto) 0.5 x10^3/uL (0.0-1.1) Eosinophils # (Auto) 0.1 x10^3/uL (0.0-0.7) Basophils # (Auto) 0.0 x10^3/uL (0.0-0.2) Sodium Level 139 mmol/L (136-145) Potassium Level 4.8 mmol/L (3.5-5.1) Chloride Level 105 mmol/L (98-107) Carbon Dioxide Level 26 mmol/L (21-32) Anion Gap 8 (6-14) Blood Urea Nitrogen 18 mg/dL (7-20) Creatinine 0.7 mg/dL (0.6-1.0) Estimated GFR (Cockcroft-Gault) 87.9 BUN/Creatinine Ratio 26 (6-20) H Glucose Level 83 mg/dL (70-99) Calcium Level 8.9 mg/dL (8.5-10.1) Total Bilirubin 0.4 mg/dL (0.2-1.0) Aspartate Amino Transferase (AST) 19 U/L (15-37) Alanine Aminotransferase (ALT) 27 U/L (14-59) Alkaline Phosphatase 80 U/L (46-116) Total Protein 8.2 g/dL (6.4-8.2) Albumin 3.6 g/dL (3.4-5.0) Albumin/Globulin Ratio 0.8 (1.0-1.7) L Lipase 125 U/L (73-393) EKG EKG [] Radiology/Procedures Radiology/Procedures [] Heart Score C/O Chest Pain: No Risk Factors: Risk Factors: DM, Current or recent (<one month) smoker, HTN, HLP, family history of CAD, obesity. Risk Scores: Risk Factors: DM, Current or recent (<one month) smoker, HTN, HLP, family hist ory of CAD, obesity. Course & Med Decision Making Course & Med Decision Making I will check labs and imaging and reassess. No acute surgical process found on her CT scan and her labs and urinalysis are unremarkable. I discussed all incidental findings including the liver nodule and the recommendation for MRI as an outpatient and the uterine fibroids as well as all other incidental findings on labs and imaging. I told her there is no acute pathology detected at this time but she does need follow-up with primary care provider and likely GI and possibly [employer] [facility] as an outpatient. I offered to prescribe her something for pain but she said it was not that bad and she rather take ibuprofen. I told her to drink plenty of fluids and follow with primary care provider within 2 to 3 days for recheck and come back to the emergency department sooner with worsening pain fevers vomiting or other general concerns. Patient aware and agreeable with plan and verbalized understanding of the abov e instructions. Dragon Disclaimer Dragon Disclaimer This electronic medical record was generated, in whole or in part, using a voice recognition dictation system. Departure Departure: Impression: Primary Impression: Abdominal pain Additional Impressions: Nausea alone Diarrhea Disposition: HOME / SELF CARE / HOMELESS Condition: STABLE Referrals: PRETTY CLAY MD (PCP) Patient Instructions: Abdominal Pain (Nonspecific) Problem Qualifiers Primary Impression: Abdominal pain Abdominal location: right lower quadrant Qualified Codes: R10.31 - Right lower quadrant pain MELY FARIAS DO March 11, 2022 10:07
[2022-03-11 10:31] VITALS: BP 126/71
== END 2022-03-11 10:32 | disposition home or self-care (01) ==
LOC: ER 08:56
DX: R10.31 Right lower quadrant pain (principal); R19.7 Diarrhea, unspecified; R11.0 Nausea; E03.9 Hypothyroidism, unspecified; Z87.442 Personal history of urinary calculi
CPT/HCPCS: 36415; 74177; 80053; 81001; 83690; 85025; 96360; 99285; J7030; Q9967